=== PATIENT | male | born 1975 | race Caucasian/White ===

== ENCOUNTER 2016-11-23 13:52 | Emergency (ER) | payer MEDICARE, OTHER ==
[~2016-11-23] VITALS: Ht 170.2 cm; Wt 63.5 kg
[2016-11-23 14:59] LABS: BASOPHIL % 0.7 % (0-2); PLATELET COUNT 144 x10^3mcL (130-400)
[2016-11-23 15:09] LABS: CALCIUM 8.4 mg/dL (8.5-10.1); CARBON DIOXIDE 30.8 mmol/L (21-32); CHLORIDE SERUM 101 mmol/L (98-107); GFR1 > 60 mL/min; GLUCOSE SERUM 96 mg/dL (74-106); POTASSIUM SERUM 3.5 mmol/L (3.5-5.1); SODIUM SERUM 137 mmol/L (136-145)
[2016-11-23 15:13] LABS: ALKALINE PHOSPHATASE 59 U/L (46-116); ALT/SGPT 22 U/L (16-63); AST/SGOT 17 U/L (15-37); BILIRUBIN TOTAL 0.6 mg/dL (0.20-1.00); HDL CHOLESTEROL 39 mg/dL (40-60); PHOSPHOROUS 4.2 mg/dL (2.5-4.9); TOTAL PROTEIN, SERUM 7.5 g/dL (6.4-8.2); URIC ACID 6.7 mg/dL (3.5-7.2)
[2016-11-23 15:16] LABS: ALBUMIN 3.3 g/dL (3.4-5.0); CHOLESTEROL 121 mg/dL (<200)
[2016-11-23 15:45] VITALS: BP 109/70
== END 2016-11-23 15:45 | disposition home or self-care (01) ==
LOC: ED 13:52
PROVIDERS: Emergency Medicine
DX: R55 Syncope and collapse (principal); Q90.9 Down syndrome, unspecified; E03.9 Hypothyroidism, unspecified; Z79.899 Other long term (current) drug therapy
CPT/HCPCS: 83880; J7030; Q0092